=== PATIENT | female | born 1990 | race Caucasian/White ===

== ENCOUNTER 2019-01-10 00:26 | Inpatient (IN) | payer OTHER ==
[~2019-01-10] VITALS: Ht 162.6 cm; Wt 100.0 kg
[2019-01-10] VITALS (20 sets, daily range): BP systolic 97–141; BP diastolic 52–87; PULSE 46–77; TEMP 97–98.2
--- NOTE | 2019-01-10 00:30 | NUR ---
0030- PT PRESENTS TO LDR COMPLAINING OF LEAKING AMNIOTIC FLUID, AMBULATORY TO ROOM LR4, CHANGED INTO GOWN. 0036- EFM X2 APPLIED, TWIN WITH BOTH BEING BREECH AT LAST APPOINTMENT. PLAN OF CARE DISCUSSED AND QUESTIONS ANSWERED. 0050- NURSING ADMISSION HISTORY AND ASSESSMENT COMPLETE. 0100- AMNIOTRACE POSITIVE WITH POOLING OF FLUID. SVE BY THIS NURSE 3-/-3. PLAN OF CARE DISCUSSED FOR PROCEEDING WITH C/S.
--- NOTE | 2019-01-10 01:10 | NUR ---
0110- DR MELLO CALLED AND UPDATED ON PT HISTORY, SROM, SVE, AND STRIP. ORDER TO PROCEED WITH PREOP C/S. INFORMED DR MELLO THAT A SECOND NURSERY NURSE HAD BEEN CALLED IN AND IT WOULD TAKE HER 45 MIN TO GET HERE. 0120- PT AND UPDATED ON PLAN OF CARE AND QUESTIONS ANSWERED. IV START TO LEFT WRIST, BLOOD DRAWN FOR LAB. LR INFUSING. 0130- DR MELLO AT BEDSIDE. VERIFIES BREECH PRESENTATION WITH BEDSIDE SONO. DISCUSSES AND ANSWERS PT QUESTIONS. 0140- CONSENTS SIGNED. 0155- MAGDA N STATION BAGGAGE AGENT AT BEDSIDE. 0200- PT OFF MONITORS AND TO OR AMBULATORY FOR SECTION. SEE OPERATIVE NOTES.
[2019-01-10 01:34] LABS: BASO % 0.4 % (0.0-2.0); EOS % 0.5 % (0-4.0); GRAN # 5.4 (1.4-6.5); HEMOGLOBIN 10.3 g/dl (12.5-16.0); LYMPH % 24.9 % (20.0-51.0); MEAN CELL VOLUME 81 fl (80.0-100.0); MEAN CORPUSCULAR HEMOGLOBIN 25 pg (27.0-31.0); MEAN CORPUSCULAR HGB CONC 31 g/dl (33.0-37.0); MEAN PLATELET VOLUME 10.6 fl (7.4-10.4); MONO # 0.4 (0.1-0.6); MONO % 5.4 % (1.7-9.3); PLATELET COUNT 222 K/mm3 (130-400); RED BLOOD COUNT 4.06 M/mm3 (4.10-5.30)
[2019-01-10 01:36] LABS: HEMATOCRIT 32.9 % (37.0-47.0)
[2019-01-10] MEDS ORDERED: PRENATAL VITAMI1 TA3 (04:31)
--- NOTE | 2019-01-10 07:35 | NUR ---
PT ORDERING BREAKFAST-HAD NURSED BABY AT 0645. WILL NURSE TWIN B NOW.
--- NOTE | 2019-01-10 10:09 | NUR ---
Initial visit; Parents thanked Wire Winding Machine Tender for offering congratulations and God's blessings for their twin sons. thanked them for choosing [facility].
--- NOTE | 2019-01-11 00:01 | NUR ---
PT DOES WELL AT THE BRST
[2019-01-11 00:07] VITALS: BP 122/72; PULSE 78; TEMP 98
[2019-01-11 09:00] VITALS: BP 129/73; PULSE 60; TEMP 97.6
[2019-01-11 16:00] VITALS: BP 138/76; PULSE 72; TEMP 98.1
[2019-01-11 21:00] VITALS: BP 126/81; PULSE 87; TEMP 97.6
[2019-01-12 07:45] VITALS: BP 113/67; PULSE 61; TEMP 97.8
[2019-01-12] MEDS ORDERED: MOTRIN 800800 MG/TAB PO (09:06)
[2019-01-12] MEDS ORDERED: PERCOCET 325 MG1 TA2 PO (09:06)
[2019-01-12 21:55] VITALS: BP 127/65; PULSE 79
[2019-01-13 08:30] VITALS: BP 130/70; PULSE 72; TEMP 97.5
== END 2019-01-13 13:30 | disposition home or self-care (01) | DRG 788 ==
LOC: LDRO 00:26 → OB 01:10
PROVIDERS: ADMIT Obstetrics & Gynecology
PROC: 10D00Z1 Extraction of Products of Conception, Low, Open Approach (ICD-10-PCS; principal; 2019-01-10)
DX: O32.1XX1 Maternal care for breech presentation, fetus 1 (principal); Z3A.38 38 weeks gestation of pregnancy; Z37.2 Twins, both liveborn; O30.043 Twin pregnancy, dichorionic/diamniotic, third trimester; O99.02 Anemia complicating childbirth
CPT/HCPCS: J0690; J1885; J2270; J2370; J2405; J2590; J7120